=== PATIENT | female | born 1950 | race Caucasian/White ===

== ENCOUNTER → 2019-10-31 09:08 | Outpatient (BNVA) | payer MEDICARE, OTHER, SELFPAY | PROVIDERS: Family Provider Family Medicine; Referring Provider Chiropractor; Visit Provider Podiatrist Foot & Ankle Surgery | DX: M19.072 Primary osteoarthritis, left ankle and foot (principal); M19.071 Primary osteoarthritis, right ankle and foot; M79.672 Pain in left foot; M79.671 Pain in right foot | CPT/HCPCS: 73630 ==

== ENCOUNTER → 2019-11-17 12:22 | Outpatient (BNVA) | payer MEDICARE, OTHER, SELFPAY | PROVIDERS: Family Provider Family Medicine; Visit Provider Urology | DX: N39.9 Disorder of urinary system, unspecified (principal); R30.0 Dysuria | CPT/HCPCS: 81001; 87086 ==

== ENCOUNTER → 2020-08-28 13:28 | Outpatient (BNVA) | payer MEDICARE, OTHER, SELFPAY | PROVIDERS: Family Provider Family Medicine; Visit Provider Nurse Practitioner Family | DX: Z20.828 Contact with and (suspected) exposure to other viral communicable diseases (principal) | CPT/HCPCS: 87635 ==

== ENCOUNTER 2020-09-20 11:31 | Outpatient (CLI) | payer MEDICARE, OTHER, SELFPAY ==
--- NOTE | 2020-09-20 11:50 | XR_ITS ---
WS: [id number] Left foot, 3 views, 09/20/2020 Clinical Data: BILATERAL FORE FOOT PAIN Comparison: Bilateral feet, 10/31/2019. Findings: Degenerative change at the left first MCP joint remains same. The remainder of the phalangeal joints is unremarkable. There are no fractures or dislocations. There is a small plantar spur. The soft tiss ues are normal. No periarticular demineralization or calcifications are seen. XR/XR foot LT min 3V* [id number] Impression: Degenerative change of the left first MCP joint.
--- NOTE | 2020-09-20 11:50 | XR_ITS ---
WS: [id number] Right foot, 3 views, 09/20/2020 Clinical Data: BILATERAL FORE FOOT PAIN Comparison: Bilateral feet, 10/31/2019. Findings: There is osteoarthritic change of the right first MP joint. The remainder of the phalangeal joints is normal. There are no fractures or dislocations. The soft tissues are normal. No periarticular demineralization or calcifications are seen. 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
== END 2020-09-20 11:32 | disposition home or self-care (01) ==
PROVIDERS: PCP Family Medicine; Visit Provider Emergency Medicine
DX: M79.672 Pain in left foot (principal); M19.071 Primary osteoarthritis, right ankle and foot
CPT/HCPCS: 73630

== ENCOUNTER 2020-10-04 14:23 | Outpatient (CLI) | payer MEDICARE, OTHER, SELFPAY ==
--- NOTE | 2020-10-04 14:34 | MM_ITS ---
WS: [id number] Exam: [place] [id number] Date/Time of Exam: 10/04/2020 2:34 PM Reason For Exam: SCREENING VIEWS: MLO and CC views both breasts. Comparison made with prior exam of 07/02/2018 and 07/27/2019. Findings: There was no sign of mass, architectural distortion or suspicious calcification in either breast. He terogeneously dense MM/[place] [id number] Impression: BI-RADS: 2-Benign FOLLOW-UP: 1 Year Follow-up This mammogram was also analyzed by the Computer Aided Detection System R2 Imag e Communication Equipment Mechanic.
== END 2020-10-04 14:24 | disposition home or self-care (01) ==
LOC: RADSHAW 14:30
PROVIDERS: Absent Provider Nurse Practitioner Women's Health; PCP Family Medicine; Visit Provider Family Medicine
DX: Z12.31 Encounter for screening mammogram for malignant neoplasm of breast (principal)
CPT/HCPCS: 77067

== ENCOUNTER 2022-01-28 14:46 | Outpatient (CLI) | payer MEDICARE, OTHER, SELFPAY ==
--- NOTE | 2022-01-28 15:01 | MM_ITS ---
WS: [id number] BILATERAL 3D TOMOSYNTHESIS DIGITAL SCREENING MAMMOGRAPHY WITH CAD CLINICAL INFORMATION: SCREENING HISTORY: Screening mammogram. No current complaints. COMPARISON: October 04, 2020 TECHNIQUE: Bilateral CC and MLO views. FINDINGS: The breasts are composed of heterogeneous fibroglandular density tissue, which can limit the detectio n of small underlying mass lesions. A few incidental tiny punctate calcifications. No suspicious mass , asymmetry, calcifications, or architectural distortion. No evidence of malignancy. MM/[place] [id number] IMPRESSION: BI-RADS: 2-Benign FOLLOW UP: 1 Year Follow-up Recommend return to annual screening mammography.
== END 2022-01-28 14:47 | disposition home or self-care (01) ==
LOC: RAD 14:51
PROVIDERS: PCP Family Medicine; Visit Provider Nurse Practitioner Women's Health
DX: Z12.31 Encounter for screening mammogram for malignant neoplasm of breast (principal)
CPT/HCPCS: 77063; 77067

== ENCOUNTER 2023-01-29 14:35 | Outpatient (CLI) | payer MEDICARE, OTHER, SELFPAY ==
--- NOTE | 2023-01-29 14:49 | MM_ITS ---
WS: [id number] BILATERAL 3D TOMOSYNTHESIS DIGITAL SCREENING MAMMOGRAPHY WITH CAD CLINICAL INFORMATION: SCREENING HISTORY: Screening mammogram. No current complaints. COMPARISON: January 28, 2022 TECHNIQUE: Bilateral CC and MLO views. FINDINGS: The breasts are composed of heterogeneous fibroglandular density tissue, which can limit the detectio n of small underlying mass lesions. No suspicious mass, asymmetry, calcifications, or architectural d istortion. No evidence of malignancy. A few tiny incidental punctate calcifications. MM/[place] [id number] IMPRESSION: BI-RADS: 2-Benign FOLLOW UP: 1 Year Follow-up Recommend return to annual screening mammography.
== END 2023-01-29 14:36 | disposition home or self-care (01) ==
PROVIDERS: PCP Family Medicine; Referring Provider Nurse Practitioner Women's Health; Visit Provider Family Medicine
DX: Z12.31 Encounter for screening mammogram for malignant neoplasm of breast (principal)
CPT/HCPCS: 77063; 77067

== ENCOUNTER → 2023-02-04 08:14 | Outpatient (BNVA) | payer MEDICARE, OTHER, SELFPAY | PROVIDERS: PCP Family Medicine; Visit Provider Otolaryngology | DX: H91.93 Unspecified hearing loss, bilateral (principal); H93.13 Tinnitus, bilateral | CPT/HCPCS: 99202 ==

== ENCOUNTER → 2023-10-02 14:04 | Outpatient (BNVA) | payer MEDICARE, OTHER, SELFPAY | PROVIDERS: PCP Family Medicine; Visit Provider Nurse Practitioner Women's Health | DX: Z01.419 Encounter for gynecological examination (general) (routine) without abnormal findings (principal); R82.90 Unspecified abnormal findings in urine; N89.8 Other specified noninflammatory disorders of vagina; E89.40 Asymptomatic postprocedural ovarian failure; Z79.890 Hormone replacement therapy | CPT/HCPCS: 81000; 87086 ==

== ENCOUNTER 2024-02-03 09:54 | Outpatient (CLI) | payer MEDICARE, OTHER, SELFPAY ==
--- NOTE | 2024-02-03 10:05 | MM_ITS ---
WS: [id number] VIEWS: MLO and CC views both breasts. 3D digital tomosynthesis is also included in this exam. Comparison made with prior exam of comparison 07/16/2012, 08/16/2013, 08/28/2014, 09/04/2015, 7, 07/02/2018, 07/27/2019, 10/04/2020, 01/28/2022, 01/29/2023.. Findings: There is a new partially obscured 12 mm nodule in the anterior LEFT breast almost directly behind the nipple. No suspicious calcification or architectural distortion noted. There are no new findings in the RIGHT breast. Regional ultrasound of the anterior LEFT breast would be indicated for further work -up. The breasts are heterogeneously dense which may obscure small masses. MM/[place] [id number] Impression: BI-RADS: 0-Incomplete: Need additional imaging evaluation FOLLOW-UP: See Report This mammogram was also analyzed by the Computer Aided Detection System R2 Imag e Crosscutter Rolled Glass. .
== END 2024-02-03 09:55 | disposition home or self-care (01) ==
LOC: RAD 09:54
PROVIDERS: PCP Family Medicine; Visit Provider Nurse Practitioner Women's Health
DX: Z12.31 Encounter for screening mammogram for malignant neoplasm of breast (principal); N63.25 Unspecified lump in the left breast, overlapping quadrants
CPT/HCPCS: 77063; 77067

== ENCOUNTER 2024-03-02 10:17 | Outpatient (CLI) | payer MEDICARE, OTHER, SELFPAY ==
--- NOTE | 2024-03-02 10:30 | US_ITS ---
WS: [id number] ULTRASOUND BREAST LEFT TECHNIQUE: Ultrasound left breast focused area of concern. CLINICAL INFORMATION: R92.8 - Other abnormal and inconclusive findings on diagn... COMPARISON: Mammogram 02/03/2024 and 01/29/2023 FINDINGS: Ultrasound LEFT breast area of concern subareolar. Lobulated cyst with a small amount of internal josé luis ris measuring approximately 1.2 x 1.1 x 0.8 cm. No internal vascularity. Associated through transmiss ion compatible with cystic contents. This is probably benign and recommend 6-month follow-up LEFT amna ast diagnostic mammography and ultrasound to confirm stability. If interval concern or perceived enlargement, this could be further evaluated with ultrasound-guided aspiration. US/US breast LT limited* [id number] IMPRESSION: BI-RADS 3 probably benign FOLLOW-UP: Recommend 6-month follow-up LEFT breast diagnostic mammography and u ltrasound. *If additional concern or perceived enlargement in the interim, patient could r eturn for ultrasound-guided aspiration. Findings discussed with the patient at the time of exam
== END 2024-03-02 10:18 | disposition home or self-care (01) ==
PROVIDERS: PCP Family Medicine; Visit Provider Nurse Practitioner Women's Health
DX: R92.8 Other abnormal and inconclusive findings on diagnostic imaging of breast (principal)
CPT/HCPCS: 76642

== ENCOUNTER 2024-08-09 17:41 | Emergency (ER) | payer MEDICARE, OTHER, SELFPAY ==
--- NOTE | 2024-08-09 17:45 | USR_ITS ---
PROCEDURE INFORMATION: Exam: US Duplex Left Lower Extremity Veins, Limited Exam date and time: 08/09/2024 6:00 PM Age: 74 years old Clinical indication: Pain; Leg, lower; Left; Additional info: Swelling TECHNIQUE: Imaging protocol: Real-time duplex ultrasound of the left extremity with 2-D laird scale, color Doppler flow and spectral waveform analysis including responses to compression and other maneuvers (when performed) with image documentation. Limited exam focused on the left lower extremity veins. COMPARISON: No relevant prior studies available. FINDINGS: Left deep veins: Left common femoral vein deep venous thrombosis. No other deep venous thrombosis. The remaining deep veins of the left leg are patent. Superficial veins: Left great saphenous vein thrombosis. Soft tissues: Unremarkable. US/CV venous duplex [facility] [id number] IMPRESSION: Deep venous thrombosis visualized from the common femoral vein to the iliac vein. Left great saphenous vein thrombosis.
[2024-08-09 18:21] VITALS: BP 135/83; PULSE 77; RESP 16; TEMP 36.6; O2SAT 98
--- NOTE | 2024-08-09 18:51 | W.ED.EXTPRO ---
HPI - Extremity Problem General: Chief complaint: Extremity Problem,Nontraumatic Stated complaint: Left leg swollen, concerned blood clot Time Seen by Provider: 08/09/24 18:51 History of Present Illness: 72-year-old female presents emergency room complaining of swollen leg. Left leg has been swollen and tingling began about 3 days ago. Initially she thought it was related to her back pain she took some Celebrex. No history of any blood clots in the past she is not on any anticoagulants. She does use intravaginal estrogen cream. Associated symptoms: Deny chest pain, fever(s) or rash Related Data Home Medications Medication Instructions Recorded Confirmed diclofenac sodium 1 % topical gel 4 g topical QID PRN 08/09/21 10/02/23 (Voltaren) Previous Rx's Medication Instructions Recorded apixaban 5 mg (74 tabs) tablets in See Rx Instructions PO .COMPLEX 08/09/24 a dose pack (Eliquis DVT-PE Treat #74 ea 30D Start) Allergies Allergy/AdvReac Type Severity Reaction Status Date / Time No Known Allergies Allergy Verified 08/09/24 18:26 Review of Systems Const: Denies: fever(s) or chills Card: Denies: chest pain Resp: Denies: dyspnea GI: Denies: abdominal pain : Denies: dysuria, urinary frequency or urinary urgency Musc: Denies: neck pain or back pain Skin/Breast: Denies: rash PFSH ED PFSH: Medical History No pertinent past medical history neghx: htn,dm,thyroid,dvt/pe Surgical History History of foot surgery stem cell injections 09/2020 plasma/platelet injections 2021 Hx of section 1975 Hx of hysterectomy abdominal- 08/18/1997. [place], [place] [facility] [place], Dr. Que[place]ada. Requests for Intraoperative Consultation by Dr. Quezada. Severe pelvic adhesions completely distorting pelvic anatomy. History of salpingectomy Bilateral-- 07/21/2008. Laparoscopic BSO. Dr. Conley. History of arthroscopic surgery of shoulder April of [address] Moss in [place] Family History Mother Diabetes Heart disease Stroke Thyroid disease Brother Diabetes Heart disease Father Diabetes Heart disease Hypertension Sister Thyroid disease Denies family history of Colon cancer Ovarian cancer Breast cancer Uterine cancer Physical Exam Const: COMMON NORMALS: no acute distress GENERAL APPEARANCE: cooperative and comfortable ORIENTATION/CONSCIOUSNESS: Yes awake, Yes oriented to person, Yes oriented to place and Yes oriented to time HENMT: COMMON NORMALS: normocephalic, atraumatic and hearing grossly normal bilaterally HEAD & SCALP: normocephalic and atraumatic Extremity: COMMON NORMALS: normal to inspection, capillary refill normal, no clubbing, cyanosis or edema, no calf tenderness and no pedal edema Neuro: SENSORIUM/ORIENTATION: Yes oriented to person, Yes oriented to place and Yes oriented to time Skin: COMMON NORMALS: no rashes or lesions noted GENERAL SKIN EXAM: no rashes or lesions noted Course Vital Signs: Vital signs: Vital Signs Temperature 97.9 F 08/09/24 18:21 Pulse Rate 77 08/09/24 18:21 Respiratory Rate 16 08/09/24 18:21 Blood Pressure 135/83 08/09/24 18:21 Pulse Oximetry 98 08/09/24 18:21 MDM - Extremity (Nontraumatic) Medical Decision Making Ultrasound venous duplex shows DVT appears to originate from the Left greater saphenous extending to the common femoral. Reviewed with the patient she is on oral estradiol supplementation recommended she stop that for now follow-up with her primary care doctor. She denies any recent travels or other precipitating cause she may need further workup. Will give her a shot of Lovenox and start her on Eliquis. Prescription sent into [email or web address]. Encourage patient follow-up with primary care doctor also discussed that she will need to stay on the Eliquis until specifically told by her physician to stop. Lab Data Radiology Impressions Venous Duplex 08/09/24 17:45 IMPRESSION: Deep venous thrombosis visualized from the common femoral vein to the iliac vein. Left great saphenous vein thrombosis. All radiology interpretation(s) finalized by discharge Discharge Plan Discharge Patient Disposition: Home Clinical Impression: Deep vein thrombosis of lower extremity Condition: Stable Prescriptions: New Eliquis DVT-PE Treat 30D Start 5 mg (74 tabs) tablets,dose pack See Rx Instructions .ROUTE .COMPLEX Qty: 74 0RF Rx Instructions: orally per package directions Discontinued estradiol [Estrace] 0.01 % (0.1 mg/gram) cream 1 g vaginal .twice per week Qty: 42.5 3RF Rx Instructions: space out doses estradiol 1 mg tablet See Rx Instructions .ROUTE .COMPLEX Qty: 90 3RF Dose Instruction: TAKE 1 & 1/2 TABLETS BY MOUTH EVERY DAY Rx Instructions: TAKE 1 & 1/2 TABLETS BY MOUTH EVERY DAY No Action diclofenac sodium [Voltaren] 1 % gel 4 g TOPICAL QID PRN Rx Instructions: apply to single knee, ankle, foot; for foot includes sole/toes/top of foot Discharge Orders: Discharge ED (Routine); Ordered 08/09/24 Ordered By: Gabriel Thomas Referrals: Shaun Robert MD [Primary Care Provider] - Discharge Diet: Usual diet Discharge Activity: Increase activity as tolerated Patient Instructions: Apixaban (By mouth) (Eliquis), Deep Vein Thrombosis (ED), Opioid Safety, Pain Management Activity Restrictions/Additional Instructions: Thank you for choosing [facility] for your healthcare needs today. It is very important that you follow up as instructed or that you return to the Emergency Department should you have concerns or if your condition changes or worsens in any way. You were seen in the emergency room for complaints of swelling in your left leg. Ultrasound showed that you do have a deep vein thrombosis. Would recommend that you stop all hormone replacement, specifically your estradiol. You are given initial dose of Lovenox in the emergency room and should start the Eliquis DVT pack that we sent into the pharmacy. It is very important that you continue taking the Eliquis until specifically told by your doctor you can stop it. Coding Level of Care Code ED Digital Account Supervisor for Vinayak Taylor
[2024-08-09] MEDS: enoxaparin 60 mg/0.6 mL Syringe SUBCUT (19:25)
[2024-08-09 19:26] VITALS: BP 129/79; PULSE 76; O2SAT 96
== END 2024-08-09 19:27 | disposition home or self-care (01) ==
PROVIDERS: Emergency Provider Family Medicine; PCP Family Medicine
DX: I82.412 Acute embolism and thrombosis of left femoral vein (principal)
CPT/HCPCS: 93971; 96372; 99284; J1650

== ENCOUNTER 2024-09-01 10:41 | Outpatient (CLI) | payer MEDICARE, OTHER, SELFPAY ==
--- NOTE | 2024-09-01 11:00 | MM_ITS ---
WS: [id number] LEFT 3D TOMOSYNTHESIS DIGITAL MAMMOGRAPHY WITH CAD CLINICAL INFORMATION: R92.8 - Other abnormal and inconclusive findings on diagn... HISTORY: 6-month follow-up LEFT breast nodule COMPARISON: 02/03/2024 and ultrasound 03/02/2024 TECHNIQUE: 3 views of the left breast were obtained. FINDINGS: The left breast is composed of heterogeneous fibroglandular density tissue, which can limit the detec tion of small underlying mass lesions. Again seen is the partially obscured LEFT breast nodule measur ing approximately 12 mm not significantly changed compared to previous. Ultrasound is pending. Otherw ise no new abnormalities in the LEFT breast. ULTRASOUND BREAST LEFT TECHNIQUE: Ultrasound left breast focused area of concern. CLINICAL INFORMATION: R92.8 - Other abnormal and inconclusive findings on diagn... FINDINGS: Ultrasound subareolar LEFT breast again demonstrates a lobulated cystic lesion with a small amount of internal debris and 1 or 2 septations. This measures approximately 1.2 x 1.3 x 1.0 cm. No associated vascularity. This is probably benign and recommend 6-month follow-up LEFT breast diagnostic mammogra phy and ultrasound until 2-year stability. If interval concern or perceived enlargement, this could be further evaluated with ultrasound-guided aspiration. Patient reports recently started Eliquis for blood clot. MM/MM diag LT tomosynthesis [id number] IMPRESSION: DENSITY: The breasts are heterogeneously dense, which may obscure small masses. BI-RADS: 3 - Probably Benign FOLLOW UP: 6 Month Follow-up Recommend 6-month LEFT breast diagnostic mammography and ultrasound.
--- NOTE | 2024-09-01 11:30 | US_ITS ---
WS: [id number] LEFT 3D TOMOSYNTHESIS DIGITAL MAMMOGRAPHY WITH CAD CLINICAL INFORMATION: R92.8 - Other abnormal and inconclusive findings on diagn... HISTORY: 6-month follow-up LEFT breast nodule COMPARISON: 02/03/2024 and ultrasound 03/02/2024 TECHNIQUE: 3 views of the left breast were obtained. FINDINGS: The left breast is composed of heterogeneous fibroglandular density tissue, which can limit the detec tion of small underlying mass lesions. Again seen is the partially obscured LEFT breast nodule measur ing approximately 12 mm not significantly changed compared to previous. Ultrasound is pending. Otherw ise no new abnormalities in the LEFT breast. ULTRASOUND BREAST LEFT TECHNIQUE: Ultrasound left breast focused area of concern. CLINICAL INFORMATION: R92.8 - Other abnormal and inconclusive findings on diagn... FINDINGS: Ultrasound subareolar LEFT breast again demonstrates a lobulated cystic lesion with a small amount of internal debris and 1 or 2 septations. This measures approximately 1.2 x 1.3 x 1.0 cm. No associated vascularity. This is probably benign and recommend 6-month follow-up LEFT breast diagnostic mammogra phy and ultrasound until 2-year stability. If interval concern or perceived enlargement, this could be further evaluated with ultrasound-guided aspiration. Patient reports recently started Eliquis for blood clot. US/US breast LT limited* [id number] IMPRESSION: DENSITY: The breasts are heterogeneously dense, which may obscure small masses. BI-RADS: 3 - Probably Benign FOLLOW UP: 6 Month Follow-up Recommend 6-month LEFT breast diagnostic mammography and ultrasound.
== END 2024-09-01 10:42 | disposition home or self-care (01) ==
PROVIDERS: PCP Family Medicine; Visit Provider Nurse Practitioner Women's Health
DX: N60.02 Solitary cyst of left breast (principal); R92.333 Mammographic heterogeneous density, bilateral breasts
CPT/HCPCS: 76642; 77061; G0279

== ENCOUNTER 2024-10-11 12:54 | Outpatient (CLI) | payer MEDICARE, OTHER, SELFPAY ==
--- NOTE | 2024-10-11 13:00 | XR_ITS ---
WS: [id number] DEXA (DUAL ENERGY X-RAY ABSORPTIOMETRY) Bone mineral density was performed using a [employer] machine. HISTORY: Z78.0 - Asymptomatic menopausal state COMPARISON: 06/10/2018 Lumbar spine BMD (L1-L4): 1.423 g/cm2 T score: 2.0 Z score: 3.8 Total hip BMD: Left: 0.988 g/cm2. T score: -0.2 Z score: 1.5 Right: 1.027 g/cm2. T score: 0.2 Z score: 1.8 10 year probability of a major osteoporotic fracture is 9.1%. Compared to the prior study from 06/10/2018. Lumbar spine bone mineral density has increased by 0.4%. Bilateral hips bone mineral density has increased by 3.1%. XR/XR DEXA axial skeleton* [id number] IMPRESSION: NORMAL BONE MINERAL DENSITY based upon the WHO classification for females. Significant increase in bone mineral density within the hips since the prior . No change within the lumbar spine.
== END 2024-10-11 12:55 | disposition home or self-care (01) ==
LOC: RAD 12:54
PROVIDERS: PCP Family Medicine; Visit Provider Nurse Practitioner Women's Health
DX: Z78.0 Asymptomatic menopausal state (principal); Z13.820 Encounter for screening for osteoporosis
CPT/HCPCS: 77080

== ENCOUNTER 2025-02-23 12:30 | Outpatient (CLI) | payer MEDICARE, OTHER, SELFPAY ==
--- NOTE | 2025-02-23 12:30 | MM_ITS ---
WS: [id number] LEFT 3D TOMOSYNTHESIS DIGITAL MAMMOGRAPHY WITH CAD CLINICAL INFORMATION: R92.8 - Other abnormal and inconclusive findings on diagn... HISTORY: 6-month follow-up COMPARISON: 2023 TECHNIQUE: 3 views of the left breast were obtained. FINDINGS: The left breast is composed of heterogeneous fibroglandular density tissue, which can limit the detection of small underlying mass lesions. Previously described partially obscured breast nodule is more difficult to visualize today and appears decreased in size. Ultrasound is pending. ULTRASOUND BREAST LEFT TECHNIQUE: Ultrasound left breast focused area of concern. CLINICAL INFORMATION: R92.8 - Other abnormal and inconclusive findings on diagn... FINDINGS: Ultrasound LEFT breast retroareolar again demonstrates the previously described cyst. This is decreased in size today measuring approximately 6 x 7 x 6 mm. Considering decrease in size in cystic appearance recommend return to annual screening mammography. MM/MM diag LT tomosynthesis [id number] IMPRESSION: DENSITY: The breasts are heterogeneously dense, which may obscure small masses. BI-RADS: 2 - Benign FOLLOW UP: 1 Year Follow-up Recommend return to annual screening mammography.
--- NOTE | 2025-02-23 13:00 | US_ITS ---
WS: [id number] LEFT 3D TOMOSYNTHESIS DIGITAL MAMMOGRAPHY WITH CAD CLINICAL INFORMATION: R92.8 - Other abnormal and inconclusive findings on diagn... HISTORY: 6-month follow-up COMPARISON: 2023 TECHNIQUE: 3 views of the left breast were obtained. FINDINGS: The left breast is composed of heterogeneous fibroglandular density tissue, which can limit the detection of small underlying mass lesions. Previously described partially obscured breast nodule is more difficult to visualize today and appears decreased in size. Ultrasound is pending. ULTRASOUND BREAST LEFT TECHNIQUE: Ultrasound left breast focused area of concern. CLINICAL INFORMATION: R92.8 - Other abnormal and inconclusive findings on diagn... FINDINGS: Ultrasound LEFT breast retroareolar again demonstrates the previously described cyst. This is decreased in size today measuring approximately 6 x 7 x 6 mm. Considering decrease in size in cystic appearance recommend return to annual screening mammography. US/US breast LT limited* [id number] IMPRESSION: DENSITY: The breasts are heterogeneously dense, which may obscure small masses. BI-RADS: 2 - Benign FOLLOW UP: 1 Year Follow-up Recommend return to annual screening mammography.
== END 2025-02-23 12:31 | disposition home or self-care (01) ==
PROVIDERS: PCP Family Medicine; Visit Provider Nurse Practitioner Women's Health
DX: N60.02 Solitary cyst of left breast (principal); R92.333 Mammographic heterogeneous density, bilateral breasts
CPT/HCPCS: 76642; 77061; G0279

== ENCOUNTER 2025-03-16 12:27 | Outpatient (CLI) | payer MEDICARE, OTHER, SELFPAY ==
--- NOTE | 2025-03-16 12:31 | MM_ITS ---
WS: [id number] RIGHT 3D TOMOSYNTHESIS DIGITAL MAMMOGRAPHY WITH CAD CLINICAL INFORMATION: ABNORMAL MAMMOGRAM COMPARISON: 02/03/2024, LEFT breast done on 02/23/2025 TECHNIQUE: 3 views of the right breast were obtained. FINDINGS: The right breast is composed of heterogeneous fibroglandular density tissue, which can limit the detection of small underlying mass lesions. No suspicious focal mass, asymmetry, calcifications, or architectural distortion. No evidence of malignancy. MM/MM diag RT tomosynthesis [id number] IMPRESSION: DENSITY: The breasts are heterogeneously dense, which may obscure small masses. BI-RADS: 1 - Negative FOLLOW UP: 1 Year Follow-up Recommend return to annual screening mammography.
== END 2025-03-16 12:28 | disposition home or self-care (01) ==
LOC: RAD 12:28
PROVIDERS: PCP Family Medicine; Visit Provider Nurse Practitioner Women's Health
DX: R92.333 Mammographic heterogeneous density, bilateral breasts (principal)
CPT/HCPCS: 77061; G0279